=== PATIENT | male | born 1960 | race Hispanic/Latino ===

== ENCOUNTER 2023-12-26 09:33 | Day surgery (SDC) | payer MEDICARE ==
[~2023-12-26] VITALS: Ht 162.6 cm; Wt 89.8 kg
[2023-12-26] VITALS (9 sets, daily range): BP systolic 114–138; BP diastolic 63–74; PULSE 62–68; RESP 9–18; TEMP 97.2; O2SAT 95–100
[~2023-12-26 09:33] MED LIST: HEPARIN SOD (PORCINE) 1000 UNIT/ML 30ML ONE; HEPARIN SOD/SOD CHLORIDE 2,000 ML ONE; IOPAMIDOL 370 MG/ML 100 ML INFUS..BTL INJ ONE; LIDOCAINE HCL 2% LOCAL 20 ML VIAL ONE; NITROGLYCERIN/D5W 200 MCG/ML 0 ML ONE; SODIUM CHLORIDE 0.9% 1000ML 1,000 ML ONE; VERAPAMIL HCL 2.5 MG/ML 2 ML VIAL ONE
[2023-12-26] MEDS ORDERED: METOPROLOL TART25 MG PO (10:00)
[2023-12-26] MEDS ORDERED: MULTI-VITAMIN1 EACH PO (10:00)
[2023-12-26] MEDS ORDERED: ASPIRIN EC81 MG PO (10:00)
[2023-12-26] MEDS ORDERED: CLOPIDOGREL75 MG PO (10:00)
[2023-12-26] MEDS ORDERED: ATORVASTATIN CA40 MG PO (10:00)
[2023-12-26] MEDS ORDERED: GLUCOTROL XL2.5 MG PO (10:00)
[2023-12-26] MEDS ORDERED: AMLODIPINE-VAL1 EACH PO (10:00)
[2023-12-26] MEDS ORDERED: METFORMIN HCL500 MG PO (10:00)
[2023-12-26 10:15] LABS: BASOPHILS # (AUTO) 0.1 (0.0-0.1); BASOPHILS % 0.7 % (0.0-1.0); EOSINOPHILS # (AUTO) 0.3 (0.0-0.4); HEMATOCRIT 41.2 % (38.2-49.6); HEMOGLOBIN 14.2 g/dL (14.0-18.0); LYMPHOCYTES # (AUTO) 2.2 (1.0-3.2); LYMPHOCYTES % 30.6 % (18.0-39.1); MEAN CORPUSCULAR HGB CONC 34.5 g/dL (31-35); MEAN CORPUSCULAR VOLUME 84.3 fL (81-99); MONOCYTES # (AUTO) 0.8 (0.2-0.8); MONOCYTES % 11.3 % (4.4-11.3); NEUTROPHILS # (AUTO) 3.8 (2.1-6.9); NEUTROPHILS % 53.3 % (38.7-80.0); PLATELET COUNT 192 x10e3/uL (140-360); RED BLOOD COUNT 4.89 x10e6/uL (4.3-5.7); RED CELL DISTRIBUTION WIDTH 12.2 % (11.7-14.4); WHITE BLOOD COUNT 7.19 x10e3/uL (4.8-10.8)
[2023-12-26 10:37] LABS: ALBUMIN 4.3 g/dL (3.5-5.0); ANION GAP 14.7 mmol/L (8-16); BILIRUBIN,TOTAL 0.7 mg/dL (0.2-1.2); CALCIUM 9.7 mg/dL (8.4-10.2); CHOL/HDL RATIO 5.3 (3.9-4.7); POTASSIUM 4.7 mmol/L (3.5-5.1); TOTAL PROTEIN 8.4 g/dL (6.5-8.1)
[2023-12-26 10:38] LABS: PROTHROMBIN TIME 13.8 seconds (11.9-14.5)
[2023-12-26] MEDS ORDERED: MIDAZOLAM HCL 2 MG/2 ML VIAL ONE (11:34)
[2023-12-26] MEDS ORDERED: FENTANYL CITRATE/PF 100MCG/2 ML INJ ONE (11:35)
[2023-12-26] MEDS ORDERED: HYDRALAZINE HCL 20 MG/ML VIAL ONE (12:03)
[2023-12-26] MEDS ORDERED: IOPAMIDOL 370 MG/ML 100 ML INFUS..BTL INJ ONE (12:09)
== END 2023-12-26 14:40 | disposition home or self-care (01) ==
LOC: CATH LAB 09:33
PROVIDERS: ATTEND Internal Medicine Cardiovascular Disease
DX: I25.708 Atherosclerosis of coronary artery bypass graft(s), unspecified, with other forms of angina pectoris (principal); Z95.1 Presence of aortocoronary bypass graft; I25.2 Old myocardial infarction; I10 Essential (primary) hypertension; E78.00 Pure hypercholesterolemia, unspecified; E11.9 Type 2 diabetes mellitus without complications; Z79.82 Long term (current) use of aspirin; Z79.02 Long term (current) use of antithrombotics/antiplatelets; Z79.84 Long term (current) use of oral hypoglycemic drugs; Z68.33 Body mass index [BMI] 33.0-33.9, adult; Z82.49 Family history of ischemic heart disease and other diseases of the circulatory system; Z83.3 Family history of diabetes mellitus
CPT/HCPCS: 36415; 80053; 80061; 82948; 85025; 85610; 93455; C1760; C1769; C1887 ×2; C1894; J0360; J2003; J2250; J3010; J7030; Q9967; 93459; 99152; 99153; J1644